=== PATIENT | female | born 1945 | race Caucasian/White ===

== ENCOUNTER → 2016-11-22 | Outpatient (CLI) | payer OTHER | LOC: BMCIMAGING 10:38 | PROVIDERS: ATTEND Internal Medicine | DX: R92.0 Mammographic microcalcification found on diagnostic imaging of breast (principal); Z79.890 Hormone replacement therapy | CPT/HCPCS: G0204 ==

== ENCOUNTER → 2016-12-06 | Outpatient (CLI) | payer OTHER | LOC: BMCIMAGING 11:33 | PROVIDERS: ATTEND Internal Medicine | DX: N60.02 Solitary cyst of left breast (principal) ==